=== PATIENT | female | born 1955 | race Two or more races ===

== ENCOUNTER 2025-04-28 06:53 | Inpatient (IN) | payer OTHER ==
[~2025-04-28] VITALS: Ht 160 cm; Wt 75.0 kg
[~2025-04-28 06:53] MED LIST: ATOR10TA PO; BACL20TA PO; LEVO-848 PO
[2025-04-28] MEDS: ceFAZolin 2 GM/D5W50ml 50 ML IV ONE (07:42)
[2025-04-28] MEDS: TRANEXAMIC ACID 20 ML ONE (10:04)
[2025-04-28] MEDS: ROPIVACAINE 0.5% (5MG/ML) 20ML AMPULE IJ ONE (10:19)
[2025-04-28] MEDS ORDERED: MIDAZOLAM HCL 2MG/2ML 2ml VIAL (1mg/ml) ONE (10:21)
[2025-04-28] MEDS ORDERED: fentaNYL CITRATE 100 MCG/2 ML VL ONE (10:21)
[2025-04-28] MEDS ORDERED: PROPOFOL 10 MG/ML 20 ML IV ONE (10:23)
[2025-04-28] MEDS: MORPHINE SULF PF 5 MG/10 ML VIAL ONE (11:21)
[2025-04-28] MEDS: BUPIVACAINE 0.25% INJ 50ML VIAL ONE (11:21)
[2025-04-28] MEDS: KETOROLAC TROMETH 30 MG/ML 1ML VIAL ONE (11:21)
[2025-04-28] MEDS: VANCOMYCIN HCL 1000 MG VL ONE (11:25)
[2025-04-28] MEDS ORDERED: ceFAZolin 1GM/50ML 50 ML IV SCH (11:30)
[2025-04-28] MEDS ORDERED: MORPHINE SULFATE INJ 2 MG/ml SYRG IV PRN (11:30)
[2025-04-28] MEDS ORDERED: NITROGLYCERIN 0.4 MG SL TAB SL PRN (11:30)
--- NOTE | 2025-04-28 11:49 | DVHOP2 ---
Discharge Orders Discharge Orders DISCHARGE WHEN CRITERIA MET DISCHARGE WHEN CRITERIA MET. Operative Rep- Outpatient Operative Report PRE-OP DIAGNOSIS: Right knee osteoarthritis POST-OP DIAGNOSIS: Same [facility] protocol followed: Yes ESTIMATED BLOOD LOSS: Less than 50 cc PROCEDURE: Right total knee arthroplasty Computer navigation right total knee arthroplasty SURGEON/CREDIT CARD CLERK: Juan GONCALVES ANESTHESIA: General INFORMED CONSENT: Informed Consent: Discussed all inherent risks, complications, and alternatives treatments with the patient. Patient has agreed to proceed with the procedure. I have reviewed all pre-operative assessments including Labs, EKGs, and radiographic images that has been performed. Patient is an appropriate candidate for the outpatient surgical center procedure. The patient is a 69-year-old female who has ongoing pain in the right knee history was for conservative measures physical therapy activity modifications and ongoing pain in the right knee the patient educated right knee pain the patient was prepped conservative measure with the physical therapy activity modification with ongoing pain in the right knee. The patient was educated on the risks and benefits of total knee arthroplasty the patient agrees and opted for total knee arthroplasty of the right lower extremity The patient is seen in the preoperative holding of the right lower extremity was marked the patient was brought to operative suite general anesthesia was then induced time-out was hospital protocol the right lower extremity was prepped and draped in the standard fashion Ancef was given for infection prophylaxis TXA was given for the feeling prophylaxis a right lower extremity was then prepped and draped in the standard fashion once I was then completed a medial parapatellar arthrotomy through skin subcu tissue muscle fascia down to tissue was then completed a medial release was then completed off the deep MCL the ACL and ACL and PCL and the anterior medial anterior lateral meniscus were then transected once I was then completed using computer navigation with a 4 degree slope with kin Slovenian mechanical axis in the appropriate manner a using kit hematocrit mechanical axis with a alignment with a valgus and valgus alignment in the appropriate manner with a 4 degree slope neutral alignment using computer navigation of the proximal tibial cut was then completed the computer navigation with the pin being placed were flexion extension internal external rotation of the hip with a 3 degree flexion slope with neutral mechanical mechanical axis in the appropriate manner of the the distal femoral cut was anchor we then with a 3 degree of external rotation of the sizing block to a size 5 sizing block on the femoral component was then under the size of 4 1 cutting block was then completed with the starting of the 5 in 1 cutting block was then completed once it was completed the of the proximal tibia cut in the femoral cuts were then operative of the ACL PCL medial and lateral meniscus were carefully removed the patient's bone was very osteopenic in nature once it was then completed a 12 mm spacer block was balanced in flexion and extension internal external rotation of the size 3 tibial base plate was once again killed along the medial 1/3 tibial tubercle size femoral femoral component which was upsized on an AP per appropriately size on the medial and lateral plate was then placed in the appropriate manner on once I was then done on the size 3 tibial base plate size 5 femoral component with a 12 mm polyethylene liner was balanced in flexion extension internal external rotation of the MCL was slightly tense therefore there was progress and all trial components were carefully removed patellar nephrectomy was then completed once I was then completed on a size 3 tibial base plate was punched in the appropriate with the patient's size 5 femoral component was cemented in position 12 mm polyethylene was then cemented placed in the position then irrigated customized saline followed by the vancomycin powder followed by 0 Vicryl 2-0 Monocryl and christos. The patient will be weight- bearing as tolerated on the right lower extremity PT OT out of bed daily follow up in 2 weeks' time JUAN LANDRY MD Apr 28, 2025 11:49
[2025-04-28 12:35] VITALS: O2SAT 98
[2025-04-28] MEDS: LACTATED RINGER'S 1,000 ML IV SCH ×2 (12:40→14:30)
--- NOTE | 2025-04-28 13:09 | DVHINCON2 ---
Date of service: Apr 28, 2025 Reason for Consultation Postop medical management while in the hospital. History of Present Illness This is a 69-year-old female with osteoarthritis came to the hospital underwent elective right knee arthroplasty surgery. Postop she is admitted to the hospital and hospitalist consultation is being requested for postop medical management. Currently patient denies any chest pain or shortness for breath. Past Medical History Osteoarthritis, hypothyroidism, hypercholesterolemia Past Surgical History Knee replacement surgery Allergies: Coded Allergies: NO KNOWN ALLERGIES (Unverified , 04/24/25) Home Meds Reported Medications Amlodipine Besylate (Amlodipine Besylate) 5 Mg Tab, 2.5 MG PO DAILY for 30 Days, MG 04/28/25 Baclofen (Baclofen) 20 Mg Tab, 10 MG PO HS, TAB 04/24/25 Atorvastatin Calcium (Lipitor) 10 Mg Tab, 10 MG PO DAILY, TAB 04/24/25 Levothyroxine Sodium (SYNTHROID TABLET) 50 Mcg Tb, 50 MCG PO QAM, TAB 04/24/25 Current Medications Current Medications Medications (Trade) Dose Ordered Sig/Shasha Route PRN Reason Start Time Stop Time Status Last Admin Lactated Ringer's 1,000 ml @ 100 mls/hr Q10H IV 04/28/25 11:30 Cefazolin Sodium 50 ml @ 50 mls/hr Q6H IV 04/28/25 11:30 04/29/25 00:29 Oxycodone/ Acetaminophen (Percocet 5/ 325MG Tablet) 1 tab Q4HP PRN PO MODERATE PAIN 04/28/25 11:30 Hydromorphone HCl (Dilaudid Injection) 1 mg Q2HP PRN IV SEVERE PAIN (7-10 PAIN SCALE) 04/28/25 11:30 UNV Ondansetron HCl (Zofran) 4 mg Q6HP PRN IV NAUSEA / VOMITING 04/28/25 11:30 Docusate Sodium (Colace Capsule) 100 mg Q12HR PO 04/28/25 22:00 Enoxaparin Sodium (Lovenox) 40 mg DAILY SC 04/29/25 10:00 Nitroglycerin (Ntrostat Sublingual) 0.4 mg Q5MINP PRN SL FOR CHEST PAIN 04/28/25 11:30 Morphine Sulfate 2 mg Q30M PRN IV FOR CHEST PAIN 04/28/25 11:30 Review of Systems No complaints of chest pain or shortness for breath dizziness or lightheadedness. No fevers chills or sweats. Other review of systems reviewed normal. Vital Signs Vital Signs Date Time Temp Pulse Resp B/P (MAP) Pulse Ox O2 Delivery O2 Flow Rate FiO2 04/28/25 07:44 97.3 83 18 158/56 (90) 99 97.3 Physical Exam Alert awake oriented to place and person. HEENT neck supple no JVD pupils equal round react to light. Heart regular rate and rhythm S1-S2 without murmurs or gallops. Lungs fair air movement chest tube will expansion no rales or wheezes. Abdomen is obese soft nontender positive bowel sounds. Extremities no edema positive distal pedal pulses. Neurologic alert awake without any focal deficits. Assessment Osteoarthritis Status post right knee arthroplasty surgery Hypothyroidism Hypercholesterolemia DJD We will admit her to telemetry floor. I will resume her thyroid cholesterol medications takes at home. Pain and nausea medications as needed. Physical therapy evaluation. Follow the routine labs CBC BMP in the morning. DVT GI prophylaxis. Supportive care and treatment. Incentive spirometry and laxatives as needed. Further clinical management per clinical course and postop recovery. Plan discussed with: Patient, Other ELDA BENITEZ MD Apr 28, 2025 13:09
[2025-04-28] MEDS ORDERED: ACETAMINOPHEN IV 1000 MG/100ML (10MG/ML) IV PRN (13:15)
[2025-04-28] MEDS ORDERED: HYDROmorphone HCL 2 MG/ML VL/or syr IV PRN (13:15)
--- NOTE | 2025-04-28 14:07 | DVH ---
CLINICAL INDICATION: Pain; S/P SURGERY TECHNIQUE: 3 radiographic views of the right knee were obtained. Comparison: None FINDINGS/IMPRESSION: Postsurgical changes from right knee arthroplasty.
[2025-04-28] MEDS: ceFAZolin 1GM/50ML 50 ML IV SCH (16:37)
[2025-04-28] MEDS: HYDROmorphone HCL 2 MG/ML VL/or syr IV PRN (17:15)
[2025-04-28 17:38] VITALS: BP 138/46; PULSE 67; RESP 15; TEMP 97.5; O2SAT 93
[2025-04-28] MEDS ORDERED: AMLO1TAB22 PO (18:17)
[2025-04-28] MEDS: ONDANSETRON HCL 4 MG/2 ML VIAL IV PRN (18:32)
[2025-04-28 20:00] VITALS: PULSE 69
[2025-04-28 21:00] VITALS: BP 155/68; PULSE 70; RESP 16; TEMP 98.1; O2SAT 100
[2025-04-28] MEDS: DOCUSATE SOD 100 MG CAP PO SCH (21:12)
[2025-04-28] MEDS: ATORVASTATIN 20 MG TAB PO SCH (21:12)
[2025-04-29] VITALS (8 sets, daily range): BP systolic 131–157; BP diastolic 65–73; PULSE 18–87; RESP 18–99; TEMP 78–98.7; O2SAT 97–99
[2025-04-29] MEDS: LEVOTHYROXINE SODIUM 50 MCG TAB PO SCH (06:04)
[2025-04-29 06:29] LABS: Basophils # (auto) 0 10 ^3/uL (0-0.2); Basophils % (auto) 0.2 % (0.0-2.0); Eosinophils # (auto) 0 10 ^3/uL (0-0.8); Eosinophils % (auto) 0.1 % (0.0-7.0); Hematocrit 39.7 % (36.0-46.0); Hemoglobin 13.4 g/dL (12.2-16.2); Lymphocytes % (auto) 14.5 % (10.0-50.0); Mean Corpuscular Hemoglobin 29.7 pg (28.0-32.0); Mean Corpuscular Hgb Conc. 33.8 g/dL (32.0-36.0); Mean Corpuscular Volume 87.8 fL (80.0-100.0); Monocytes # (auto) 0.6 10 ^3/uL (0-1.3); Monocytes % (auto) 8.4 % (0.0-12.0); Neutrophils # (auto) 5.4 10 ^3/uL (1.6-8.6); Neutrophils % (auto) 76.8 % (37.0-80.0); Nucleated Red Blood Cells % 0.1 %; Platelet Count (auto) 206 10^3/uL (140-450); Red Blood Cells 4.52 10^6/uL (4.0-5.20)
[2025-04-29 06:31] LABS: Alanine Aminotransferase 17 U/L (7-40); Albumin 4.2 g/dL (3.2-4.8); Alkaline Phosphatase 61 U/L (46-116); Anion Gap 9 (5-15); Aspartate Aminotransferase 17 U/L (13-40); BUN/Creatinine Ratio 13.1 (10.0-20.0); Carbon Dioxide 23 mmol/L (20-31); Potassium 3.8 mmol/L (3.5-5.1); Sodium 139 mmol/L (136-145); Total Protein 6.4 g/dL (5.7-8.2)
[2025-04-29 06:32] LABS: Bilirubin, Total 0.5 mg/dL (0.2-1.0)
[2025-04-29 06:38] LABS: Blood Urea Nitrogen 8 mg/dL (9-23); Chloride 107 mmol/L (98-107); Glucose 138 mg/dL (74-106)
--- NOTE | 2025-04-29 07:56 | DVHPN2 ---
Progress Note Date Seen: Apr 29, 2025 Medical Necessity Reason Pt with a Central, PICC or Fol: No Subjective Patient reports: No new complaints Objective vital signs Vital Sign Date Time Temp Pulse Resp B/P (MAP) Pulse Ox O2 Delivery O2 Flow Rate FiO2 04/29/25 06:28 72 15 142/75 04/29/25 05:00 78.0 99 78.0 04/28/25 20:00 Room Air* 0 21 Total Intake and Output 04/28/25 04/28/25 04/29/25 15:00 23:00 07:00 Intake Total 100 ml 200 ml Balance 100 ml 200 ml medications Current Medications Medications Dose Ordered Sig/Shasha Route Start Time Stop Time Status Last Admin Dose Admin Oxycodone/ Acetaminophen 1 tab Q4HP PRN PO 04/28/25 11:30 Hydromorphone HCl 1 mg Q2HP PRN IV 04/28/25 11:30 04/29/25 05:58 1 MG Ondansetron HCl 4 mg Q6HP PRN IV 04/28/25 11:30 04/28/25 18:32 4 MG Docusate Sodium 100 mg Q12HR PO 04/28/25 22:00 04/28/25 21:12 100 MG Enoxaparin Sodium 40 mg DAILY SC 04/29/25 10:00 Nitroglycerin 0.4 mg Q5MINP PRN SL 04/28/25 11:30 Morphine Sulfate 2 mg Q30M PRN IV 04/28/25 11:30 Levothyroxine Sodium 50 mcg QAM PO 04/29/25 07:00 04/29/25 06:04 50 MCG Atorvastatin Calcium 10 mg HS PO 04/28/25 22:00 04/28/25 21:12 10 MG Baclofen 5 mg Q8HP PRN PO 04/28/25 13:15 Examination: GENERAL:Normal, MSK:Abnormal laboratory and microbiology Laboratory Tests 04/29/25 06:01 Test 04/29/25 06:01 Range/Units Serum Glucose 138 H 74-106 mg/dL Problem List/Assessment/Plan Problem List/Assessment/Plan 69 year old female who is s/p Right TKA POD 1 1. WBAT RLE with walker 2. CPM as ordered 3. Physical therapy 4. Pain control 5. d/c planning for home tomorrow with home health and in home physical therapy Plan discussed with: Patient My Orders My Orders Orders - MILAGRO DRUMMOND NP Procedure Category Date Status Time Admit ADMIT 04/28/25 Transmitted 11:22 Patient Condition COMORDER 04/28/25 Transmitted Stable 11:22 R Knee 3v Xray XY 04/28/25 Resulted 11:22 Regular Diet DIET 04/28/25 Transmitted Lunch Vital Signs JAYSON 04/28/25 In Process 11:22 Weight-Bearing JAYSON 04/28/25 In Process Restrictions 11:22 Oxycodone W/ Acet PHA 04/28/25 In Process 5/325mg Tab (Percocet 11:30 Hydromorphone PHA 04/28/25 In Process Injection (Dilaudid 11:30 Ondansetron Hcl PHA 04/28/25 In Process (Zofran) 11:30 Docusate Sodium PHA 04/28/25 In Process Capsule (Colace 22:00 CPM PT 04/28/25 Transmitted 11:22 Pt Request For Service PT 04/28/25 Logged 11:22 Call/Page JAYSON 04/28/25 In Process Hospitalist/Atten Fo 11:22 Cpm Machine To JAYSON 04/28/25 In Process Operative Leg 11:22 Incentive Spirometry ORDERS 04/28/25 Transmitted 11:22 Enoxaparin Sodium PHA 04/29/25 In Process (Lovenox) 10:00 Nitroglycerin PHA 04/28/25 In Process Sublingual (Ntrostat 11:30 Morphine Sulfate PHA 04/28/25 In Process Injection 11:30 Stat Ekg For Chest JAYSON 04/28/25 In Process Pain 11:22 Notify Of Changes JAYSON 04/28/25 In Process From Base 11:22 Sheep And Wheat Farmer For JAYSON 04/28/25 In Process 24 Hours 11:22 Emergency Dysrhythmia JAYSON 04/28/25 In Process Protocol 11:22 Rhythm Strips Once JAYSON 04/28/25 In Process Every Shift 11:22 Oxygen By Nasal RT 04/28/25 Transmitted Cannula 11:22 * Hospitalist Consult CONS 04/28/25 Transmitted Date of Service: Apr 29, 2025 Billing Provider: EFREN ASKEW MD Common Visit Codes: NOT BILLABLE MILAGRO DRUMMOND NP Apr 29, 2025 07:56
[2025-04-29] MEDS: ENOXAPARIN SOD 40 MG/0.4 ML SYRINGE SC SCH (09:02)
[2025-04-29] MEDS: BACLOFEN 10 MG TAB PO PRN (14:08)
[2025-04-29] MEDS: OXYCODONE W/ ACETAMINOPHEN 5/325MG TABLET PO PRN (15:05)
[2025-04-29] MEDS: ONDANSETRON HCL 4 MG/2 ML VIAL IV ONE (17:18)
[2025-04-29] MEDS: Ensure Enlive Strawberry 8oz Bottle PO SCH (17:39)
[2025-04-30 01:00] VITALS: BP 130/65; PULSE 73; RESP 17; TEMP 97.8; O2SAT 97
[2025-04-30 05:00] VITALS: BP 157/66; PULSE 80; RESP 19; TEMP 97.6; O2SAT 98
--- NOTE | 2025-04-30 07:32 | DVHDS2 ---
Discharge Summary Date of Admission Apr 28, 2025 at 11:22 Date of Discharge: Apr 30, 2025 Wounds: 1. You will likely have a gel-type dressing over your wound, you may keep this on for 7-14 days after leaving the hospital until your first post-op visit, unless it becomes soiled or your skin becomes irritated. If a wound vac dressing is placed on your knee this is to be left in place for one week and will be changed as needed. After your remove the dressing or wound vac, the home health nurse may place clean dry dressing over your wound. Keep wound covered, clean and dry for two weeks. 2. [place] will be removed during your initial post-op visit. If you have concerns about our wound, please call the office immediately. If nervous about staple removal can take pain pill one hour prior to appointment. 3. If there is drainage from your wound, change the dressing daily until it stops. If drainage lasts more than 10 days, call our office. 4. Low grade (up to 100 degrees) fever is common for the first week after surgery. You should take your temperature daily. If you have fevers of 101 or more, please call the office. Labs/Diagnostic Data: Laboratory Results Test 04/29/25 06:01 White Blood Count 7.0 10^3/uL (4.4-10.8) Red Blood Count 4.52 10^6/uL (4.0-5.20) Hemoglobin 13.4 g/dL (12.2-16.2) Hematocrit 39.7 % (36.0-46.0) Mean Corpuscular Volume 87.8 fL (80.0-100.0) Mean Corpuscular Hemoglobin 29.7 pg (28.0-32.0) Mean Corpuscular Hemoglobin Concent 33.8 g/dL (32.0-36.0) Red Cell Distribution Width 15.0 % (11.8-14.3) Platelet Count 206 10^3/uL (140-450) Mean Platelet Volume 8.2 fL (6.9-10.8) Neutrophils (%) (Auto) 76.8 % (37.0-80.0) Lymphocytes (%) (Auto) 14.5 % (10.0-50.0) Monocytes (%) (Auto) 8.4 % (0.0-12.0) Eosinophils (%) (Auto) 0.1 % (0.0-7.0) Basophils (%) (Auto) 0.2 % (0.0-2.0) Neutrophils # (Auto) 5.4 10 ^3/uL (1.6-8.6) Lymphocytes # (Auto) 1.0 10 ^3/uL (0.4-5.4) Monocytes # (Auto) 0.6 10 ^3/uL (0-1.3) Eosinophils # (Auto) 0 10 ^3/uL (0-0.8) Basophils # (Auto) 0 10 ^3/uL (0-0.2) Nucleated Red Blood Cells 0.1 % Sodium Level 139 mmol/L (136-145) Potassium Level 3.8 mmol/L (3.5-5.1) Chloride Level 107 mmol/L (98-107) Carbon Dioxide Level 23 mmol/L (20-31) Anion Gap 9 (5-15) Blood Urea Nitrogen 8 mg/dL (9-23) Creatinine 0.61 mg/dL (0.550-1.02) Glomerular Filtration Rate Calc 96 mL/min (>90) BUN/Creatinine Ratio 13.1 (10.0-20.0) Serum Glucose 138 mg/dL (74-106) Calcium Level 9.0 mg/dL (8.7-10.4) Total Bilirubin 0.5 mg/dL (0.2-1.0) Aspartate Amino Transferase (AST) 17 U/L (13-40) Alanine Aminotransferase (ALT) 17 U/L (7-40) Alkaline Phosphatase 61 U/L (46-116) Total Protein 6.4 g/dL (5.7-8.2) Albumin 4.2 g/dL (3.2-4.8) Other Laboratory Tests 04/29/25 06:01 Brief Hx & Hospital Course: s/p right total knee arthroplasty Condition at Discharge: Good Final Diagnosis/Problems List right knee osteoarthritis s/p right TKA Discharge Disposition: Home with Health Services Discharge Instruct/Medications Diet: Regular Diet comment: may advance diet as tolerated, drink plenty of fluids. avoid alcohol while taking narcotics Activity: See Comment Activity comment: 1.You can bear as much weight as you tolerate on your knee unless specifically instructed otherwise. You may use the walking aid which you were discharged with and switch to a cane whenever you feel comfortable doing so. You should use an assistive device until you can walk comfortably without it. Keep in mind that every patient moves at their own speed of recovery so take your time. 2.A physical therapist will visit you at home. 3.Use CPM machine as instructed (6 hours a day) and increase flexion by 5 degrees daily. 4.High impact activity such as jumping, aerobics, tennis, and skiing are not permitted during the first 3 months after surgery. These activities can contribute to accelerated wear and should be done with caution after this time. Discuss this with your surgeon if you have questions. 5.Although a bath or whirlpool is NOT permitted during the first 2-3 weeks, you may shower as soon as you get home from the hospital provided there is no wound drainage. Place a dressing or covering over the wound when you shower. 6.Swimming is not permitted until the wound is healed, which typically occurs approximately 3-4 weeks after surgery. Follow Up/Referral: 1.Driving is not permitted within the first 2 weeks. 2.Your first postoperative visit will take place 2 weeks after discharge. Please call the office once you are home from the hospital to arrange this appointment. 3.Antibiotic preventative treatment is required before dental or other invasive procedures. Please ask your surgeon about this at your first postoperative visit. If you experience chest pain, shortness of breath or severe painful calf swelling, go to the nearest emergency room to be evaluated. Please call our office once your situation is stabilized. Medications: 1.You will be discharged with pain medication, a blood thinner (unless you were previously on a blood thinner prior to surgery) and stool softener. Please follow the instructions regarding these medications as provided by your nurse at the hospital upon discharge. 2.Blood clots in the leg are a known complication of surgery. It is very important that you take the medication to protect against clots. Depending on what you are discharged on typically it is Lovenox 40mg daily for 2 weeks or Aspirin 81mg twice daily for 4 weeks. After you finish this, you should then take baby Aspirin (81mg) once daily for 2 weeks. 3.You should restart all of your prescription medications once discharged from the hospital/surgery center unless specifically instructed otherwise. 4.Herbal supplements may be restarted 2 weeks after surgery. 5.If you have been given Coumadin as a blood thinner, please follow up with your solder leveler printed circuit boards during the first two weeks after surgery to review medications and overall medical well-being. 6.Please note that narcotic pain medication may cause constipation. Please remember to take stool softeners (Colace) when using narcotics to help reduce the change of constipation. You should not use alcohol together with narcotic medication. Discharge Statement: "Patient was advised to return to the ER or call 911 if any headaches, dizziness, shortness of breath, chest pain, abdominal pain, bleeding, fevers, or worsening of medical condition. Patient was counseled about treatment plan, medications, possible side effects, patientverbalized understanding. All questions were answered to the best of my ability. This discharge took greater then 30 minutes in planning, reviewing documentation, counseling the patient, and discussing with other team members." ASSESSMENT ASSESSMENT Assessment MILAGRO DRUMMOND NP Apr 30, 2025 07:32
[2025-04-30 08:00] VITALS: PULSE 84
[2025-04-30 09:00] VITALS: BP 165/78; PULSE 84; RESP 16; TEMP 97.9; O2SAT 95
[2025-04-30 10:35] VITALS: TEMP 36.6
[2025-04-30 12:38] VITALS: BP 136/68; PULSE 85; RESP 16
== END 2025-04-30 12:58 | disposition home health service (06) | DRG 470 ==
LOC: SUR 06:53 → OVERFLOW 11:22 → TELE-EAST 17:47
PROVIDERS: ADMIT Nurse Practitioner; ATTEND Orthopaedic Surgery
PROC: 8E0YXBZ Computer Assisted Procedure of Lower Extremity (ICD-10-PCS; 2025-04-28)
PROC: 0SRC0J9 Replacement of Right Knee Joint with Synthetic Substitute, Cemented, Open Approach (ICD-10-PCS; principal; 2025-04-28 10:28)
DX: M17.11 Unilateral primary osteoarthritis, right knee (principal); E78.00 Pure hypercholesterolemia, unspecified; E03.9 Hypothyroidism, unspecified; Z79.899 Other long term (current) drug therapy
CPT/HCPCS: 36415; 73562; 80053; 85025; 86850; 86900; 86901; 97110; 97116; 97163; C1713; G0378; J1885; J2250; J2405; J2704; J3490